=== PATIENT | male | born 2000 | race Caucasian/White ===

== ENCOUNTER 2022-11-24 02:02 | Emergency (ER) | payer OTHER, SELFPAY ==
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
[2022-11-24 02:19] VITALS: BP 118/80; BP 119/75; PULSE 77; PULSE 81; RESP 20; TEMP 36.5; O2SAT 95; BMI 24.7
[2022-11-24 03:08] LABS: MANUAL DIFF FLAG NO
[2022-11-24 03:09] LABS: Basophils Percent Auto 0.4 % (0-2); Eosinophils Percent Auto 0.4 % (0-4); Hemoglobin 15.5 g/dl (14.0-18.0); Imm Gran Abs Auto 0.02 X10*3/uL (0.00-0.03); Imm Gran Pct Auto 0.4 % (0.0-0.4); Lymphocytes Absolute Auto 0.8 X10*3/uL (1.2-4.9); Lymphocytes Percent Auto 14.7 % (20-40); Mean Corpuscular HGB Conc 35.2 g/dl (31.0-36.0); Mean Corpuscular Hemoglobin 30.6 pg (27.0-33.0); Mean Platelet Volume 8.4 fL (9.4-12.4); Monocytes Absolute Auto 0.3 X10*3/uL (0.1-1.2); Monocytes Percent Auto 5.3 % (2-11); Neutrophils Absolute Auto 4.5 x10*3/uL (2.0-8.3); Neutrophils Percent Auto 78.8 % (45-73); Platelet Count 263 X10*3/uL (160-400); Red Blood Count 5.06 X10*6/uL (4.60-5.80); Red Cell Distribution Width 12.7 % (11.0-16.0); White Blood Count 5.7 X10*3/uL (4.8-10.8)
[2022-11-24 03:14] LABS: INTERNATIONAL NORM RATIO 1.1 (0.9-1.1); Prothrombin Time 12.3 SEC (10.0-13.1)
[2022-11-24 03:17] LABS: Partial Thromboplastin Time 27.4 SEC (26.0-36.4)
[2022-11-24 03:32] LABS: Alanine Aminotransferase 23 U/L (0-40); Albumin Level 4.7 g/dL (3.5-5.0); Alkaline Phosphatase 116 U/L (39-117); Anion Gap 13 (12-20); Aspartate Amino Transferase 26 U/L (5-37); Bilirubin Total 0.8 mg/dL (0.0-1.0); Blood Urea Nitrogen 10 mg/dL (9-16); Calcium 9.4 mg/dL (8.4-10.2); Carbon Dioxide 25 mmol/L (22-29); Chloride 108 mmol/L (96-108); Creatinine Clr Calc Pharmacy 127.8; Estimated Glomerular Filt Rate > 60; Ethanol 198 mg/dL; Glucose Random 101 mg/dL (60-115); Potassium 3.7 mmol/L (3.3-5.1); Sodium 142 mmol/L (135-145); Total Protein 7.4 g/dL (6.5-8.0)
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
[2022-11-24 05:52] VITALS: BP 111/74; PULSE 79; RESP 15; TEMP 36.1; O2SAT 99
--- OUTSIDE RECORDS SUMMARY | 2022-11-24 07:21 | XMS_ITS | Continuity of Care Document ---
Author Name Unknown Organization [facility] Address [address] [place] [address]- Care Team Providers Care Donor Technician Name Role Phone Henny VILLAGRAN, Anna Primary Care Physician Encounter [facility] Date(s): 02/16/20 - 03/17/20 [facility]/[address] [address]- [facility] Allergies, Adverse Reactions, Alerts Substance Reaction Severity Status Pollen Active Immunizations Given and Recorded Vaccine Date Status Refusal Reason tetanus/diphtheria/pertussis, acel(Tdap) 05/29/18 Recorded tetanus/diphtheria/pertussis, acel(Tdap) 08/14/11 Recorded Meningococcal Conjugate Vaccine 05/29/18 Recorded Meningococcal Conjugate Vaccine 08/14/11 Recorded Influenza Virus Vaccine (oldterm) 05/29/18 Recorde d Influenza Virus Vaccine (oldterm) 06/15/15 Recorde d Influenza Virus Vaccine (oldterm) 06/07/14 Recorde d meningococcal group B vaccine 01/18/17 Recorded meningococcal group B vaccine 01/18/16 Recorded Human Papillomavirus Vaccine 01/18/16 Recorded Human Papillomavirus Vaccine 12/15/14 Recorded Human Papillomavirus Vaccine 12/09/13 Recorded Hepatitis A Vaccine (oldterm) 01/18/16 Recorded Hepatitis A Vaccine (oldterm) 12/15/14 Recorded Varicella Virus Vaccine 11/10/07 Recorded Varicella Virus Vaccine 12/21/99 Recorded Measles/Mumps/Rubella Virus Vaccine 08/24/03 Recor ded Measles/Mumps/Rubella Virus Vaccine 12/21/99 Recor ded Poliovirus Vaccine, Inactivated 08/24/03 Recorded Poliovirus Vaccine, Inactivated 12/21/99 Recorded Poliovirus Vaccine, Inactivated 04/19/99 Recorded Poliovirus Vaccine, Inactivated 02/09/99 Recorded diphtheria/tetanus/pertussis, acel(DTaP) 08/24/03 Recorded diphtheria/tetanus/pertussis, acel(DTaP) 03/18/00 Recorded diphtheria/tetanus/pertussis, acel(DTaP) 08/04/99 Recorded diphtheria/tetanus/pertussis, acel(DTaP) 02/16/99 Recorded diphtheria/tetanus/pertussis, acel(DTaP) 01/20/99 Recorded pneumococcal 13-valent vaccine 03/18/00 Recorded Haemophilus B Conj Vaccine (oldterm) 12/21/99 Nehemiah rded Haemophilus B Conj Vaccine (oldterm) 08/04/99 Nehemiah rded Haemophilus B Conj Vaccine (oldterm) 04/19/99 Nehemiah rded Haemophilus B Conj Vaccine (oldterm) 02/09/99 Nehemiah rded Hepatitis B Vaccine (old term) 08/04/99 Recorded Hepatitis B Vaccine (old term) 01/20/99 Recorded Hepatitis B Vaccine (old term) 98 Recorded Medications No Home Meds See Instructions, # 1 each, Maintenance, No home meds, 03/01/20 15:23:00 EDT, Supply Start Date: 03/01/20 Status: Ordered Problem List Condition Effective Dates Status Health Status Inform ant Seasonal allergies(Confirmed) Active
--- OUTSIDE RECORDS SUMMARY | 2022-11-24 07:21 | XMS_ITS | Continuity of Care Document ---
Author Name Unknown Organization [facility] Address [address] [place] [address]- Care Team Providers Care Housekeeping Worker Name Role Phone Henny VILLAGRAN, Anna Primary Care Physician [phone] Encounter [facility] Date(s): 03/01/20 - 03/31/20 [facility]/[address] [address]- [facility] Attending Physician: AdmJudie guajardo Admitting Physician: AdmtrJudie Referring Physician: Admtr, ArBrendon Allergies, Adverse Reactions, Alerts Substance Reaction Severity [...]
--- OUTSIDE RECORDS SUMMARY | 2022-11-24 07:21 | XMS_ITS | Continuity of Care Document ---
Author Name Unknown Organization [facility] Address [address] [id number]- Care Team Providers Care Caser Name Role Phone Andrea PUGA, Erik Chance Primary Care Physician Encounter [facility] Date(s): 01/26/20 - 02/25/20 [facility]/[address] [address]- [facility]
--- OUTSIDE RECORDS SUMMARY | 2022-11-24 07:21 | XMS_ITS | Continuity of Care Document ---
Author Name Unknown Organization [facility] Address Unknown Care Team Providers Care Stamping Die Try Out Worker Name Role Phone Anna Inman NP Primary Care Physician Encounter [facility] Date(s): 01/23/22 - 02/22/22 [facility] Attending Physician: Judie Dowell Admitting Physician: Judie Dowell Referring Physician: Judie Dowell Allergies, Adverse Reactions, Alerts Substance Reaction Severity Status Pollen Active Immunizations Given and Recorded Vaccine Date Status Refusal Reason SARS-CoV-2 mRNA (meuoqey-sazz-oxoxj) vax 01/27/21 Recorded SARS-CoV-2 (COVID-19) mRNA BNT-162b2 vac 01/04/21 Recorded tetanus/diphtheria/pertussis, acel(Tdap) 05/29/18 Recorded tetanus/diphtheria/pertussis, acel(Tdap) 08/14/11 [...] Health Status Inform ant Seasonal allergies(Confirmed) Active Social History Social History Type Response Smoking Status Never (less than 100 in lifetime); Tobacco user in household: No entered on: 01/24/21 Sex
--- OUTSIDE RECORDS SUMMARY | 2022-11-24 07:21 | XMS_ITS | Continuity of Care Document ---
Author Name Unknown Organization [facility] Address [address] [place] [address]- Care Team Providers Care Designer Writer Name Role Phone Andrea PUGA, Erik Chance Primary Care Physician Encounter [facility] Date(s): 08/25/19 - 08/25/[address] [address]- [facility] Attending Physician: Christina PUGA, Anand Wayne
--- OUTSIDE RECORDS SUMMARY | 2022-11-24 07:22 | XMS_ITS | Continuity of Care Document ---
Author Name Unknown Organization [facility] Address [address] [place] [address]- Care Team Providers Care Box Spinner Name Role Phone Henny VILLAGRAN, Anna Primary Care Physician [phone] Encounter [facility] Date(s): 01/24/21 - 02/23/21 [facility]/[address] [address]- Attending Physician: AdmJudie guajardo Admitting Physician: AdmtrJudie Referring Physician: Admtr, Ar8 Allergies, Adverse Reactions, Alerts Substance Reaction Severity [...]
[2022-11-24 07:38] VITALS: BP 124/76; PULSE 76; RESP 18; O2SAT 98
--- NOTE | 2022-11-24 07:38 | PC.NURSE ---
ALERT, SPEECH CLEAR, SKIN WPD, INST REVIEWED AND DIAGNOSIS EXPLAINED WELL TEACHING RE HEAD INJURIES AND CONCUSSIONS
== END 2022-11-24 12:01 | disposition home or self-care (01) ==
PROVIDERS: Emergency Provider Emergency Medicine Emergency Medical Services
DX: S06.9XAA Unspecified intracranial injury with loss of consciousness status unknown, initial encounter (principal); S02.2XXA Fracture of nasal bones, initial encounter for closed fracture; S00.83XA Contusion of other part of head, initial encounter; Y04.8XXA Assault by other bodily force, initial encounter; F10.920 Alcohol use, unspecified with intoxication, uncomplicated; Y90.6 Blood alcohol level of 120-199 mg/100 ml; Y93.9 Activity, unspecified; Y92.511 Restaurant or cafe as the place of occurrence of the external cause; Y99.9 Unspecified external cause status
CPT/HCPCS: 36415; 70450; 70486; 72125; 80053; 80307; 85025; 85610; 85730; 99284